=== PATIENT | female | born 1985 | race Caucasian/White ===

== ENCOUNTER 2017-03-06 15:29 | Emergency (ER) | payer MEDICAID ==
[2017-03-06 15:29] VITALS: BMI 39.9
[2017-03-06 15:37] VITALS: RESP 16
--- NOTE | 2017-03-06 16:46 | ED PDOC ---
Syncope/Near Syncope/Dizziness Time Seen by Provider: 03/06/17 15:48 Chief Complaint (Nursing): Dizziness/Lightheaded Chief Complaint (Provider): Syncope History Per: Patient History/Exam Limitations: no limitations Onset/Duration Of Symptoms: Hrs Current Symptoms Are (Timing): Better Number Of Syncopal Episodes: 1 Activity At Onset Of Symptoms: Standing Associated Symptoms Preceding Syncopal Episode: No Predromal Symptoms (Sudden Onset) Seizure Or Post-ictal Symptoms: None Fall Associated With With Symptoms: No Additional Complaint(s): Maxwell Jackson, a 31 year old female, with a past medical history of anxiety and depression presents to the ED post syncopal episode. The patient reports that around noon today she was leaning over and she just fell down. She states that she was alone and so she is unsure of whether or not she lost consciousness. As per patient, she has no history of of fainting or syncopal episodes. Denies urine incontinence, sweats, focal weakness, chest pain and blurry vision. The patient further states that she has been under a lot of stress lately due to relationship issues with her daughter's father. She has been feeling depressed and today even sent her daughter to stay with mother and says she was crying all morning and that she hasn't eaten since yesterday. She also reports that she has not had a regular period since November and in February she had a positive test but is unsure of whether or not she is currently . Denies vaginal bleeding and vaginal discharge. PMD: No Regular Provider Past Medical History Reviewed: Historical Data, Nursing Documentation, Vital Signs Vital Signs: Last Vital Signs Temp 97.9 F 03/06/17 15:34 Pulse 94 H 03/06/17 15:34 Resp 16 03/06/17 15:34 BP 148/93 H 03/06/17 15:34 Pulse Ox 97 03/06/17 15:34 - Medical History PMH: Anxiety, Depression Denies: Diabetes, Hepatitis, HIV, HTN, Seizures, Sexually Transmitted Disease - Surgical History Surgical History: Cholecystectomy - Family History Family History: States: Unknown Family Hx - Social History Current smoker - smoking cessation education provided: No Ex-Smoker (has not smoked in the last 12 months): No Alcohol: Occasional Drugs: Denies (she states that there is wed in the house due to the fact that her boyfriend smokes "weed") - Immunization History Hx Tetanus Toxoid Vaccination: No Hx Influenza Vaccination: No Hx Pneumococcal Vaccination: No - Home Medications Home Medications: Ambulatory Orders Medication Instructions Recorded No Known Home Med 01/05/16 - Allergies Allergies/Adverse Reactions: Allergies Allergy/AdvReac Type Severity Reaction Status Date / Time No Known Allergies Allergy Verified 03/06/17 17:37 Review of Systems ROS Statement: Except As Marked, All Systems Reviewed And Found Negative (and as per HPI) Constitutional: Positive for: Weakness, Malaise. Negative for: Sweats Eyes: Negative for: Vision Change Cardiovascular: Negative for: Chest Pain Neurological: Positive for: Other (1 syncopal episode) Psych: Positive for: Depression Physical Exam - Reviewed Nursing Documentation Reviewed: Yes Vital Signs Reviewed: Yes - Physical Exam Appears: Positive for: Non-toxic, No Acute Distress Head Exam: Positive for: ATRAUMATIC, NORMOCEPHALIC Skin: Positive for: Warm, Dry Eye Exam: Positive for: EOMI, PERRL ENT: Negative for: Pharyngeal Erythema, Tonsillar Exudate Neck: Positive for: Painless ROM, Supple Cardiovascular/Chest: Positive for: Regular Rate, Rhythm, Chest Non Tender. Negative for: Murmur Respiratory: Positive for: Normal Breath Sounds. Negative for: Wheezing Gastrointestinal/Abdominal: Positive for: Soft. Negative for: Tenderness Back: Positive for: Normal Inspection. Negative for: Decreased ROM Extremity: Positive for: Normal ROM. Negative for: Deformity Lymphatic: Negative for: Adenopathy Neurologic/Psych: Positive for: Alert. Negative for: Motor/Sensory Deficits - Laboratory Results Result Diagrams: 03/06/17 17:11 03/06/17 17:11 - ECG O2 Sat by Pulse Oximetry: 97 (RA) Pulse Ox Interpretation: Normal Medical Decision Making Medical Decision Makin Initial Impression 31 y/o female presenting with syncope Initial Plan: * Upreg * Udip * Reevaluation Differentials include but no limited to: , Dehydration, Electrolyte Abnormality, Anemia, Stress, Depression Upreg performed results are negative. Urine dip: Positive trace ketones, blood, protein 100. Otherwise unremarkable Labs unremarkable Accession No. 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 no. Patient Name: MAXWELL JACKSON Pt. Address: [address] [place] [address] Rec #: [id number] [place] [address]: Geoffrey BUENO, Leila Ambrose Pt Order Location: [facility] : 1985 Female Age: 31 Order #: [id number] Reason for exam: headache syncope CT Scan HEAD W/O CONTRAST Exam Date: 03/06/17 This imaging exam was performed at [facility] EXAM: CT Head Without Intravenous Contrast CLINICAL HISTORY: 31 years old, female; Signs and symptoms; Dizziness; Additional info: Headache syncope TECHNIQUE: Axial computed tomography images of the head/brain without intravenous contrast. All CT scans at this facility use one or more dose reduction techniques, viz.: automated exposure control; ma/kV adjustment per patient size (including targeted exams where dose is matched to indication; i.e. head); or iterative reconstruction technique. Coronal and sagittal reformatted images were created and reviewed. COMPARISON: No relevant prior studies available. FINDINGS: Brain: No acute intracranial hemorrhage. No significant white matter disease. No edema. Ventricles: No significant ventriculomegaly. Bones: No acute displaced fracture. Sinuses: Unremarkable as visualized. No acute sinusitis. Mastoid air cells: Unremarkable as visualized. No mastoid effusion. IMPRESSION: No acute intracranial hemorrhage, or suspicious mass effect. Dictated By: Rand Benites MD Dictated Date/Time: 03/06/172027 Signed By: Rand Benites MD Date Signed: 2027 Transcribed By: DALTON Transcribe Date/Time : 03/06/172027 JAMIE/DANIEL 830 On reeval pt stable. Feel betters s/p IVF. DW pt findings and plan of care. Pt to be evaluated by crisis. Questions/concerns addressed, specifically concerns about amenorrhea. Strongly advised Ms Sql Developer follow up for further management. 10p Per CW pt stable for DC. ____ Scribe Attestation Documented by Ana Scherer, acting as a scribe for Leila Hale MD. Provider Scribe Attestation All medical record entries made by the Scribe were at my direction and personally dictated by me. I have reviewed the chart and agree that the record accurately reflects my personal performance of the history, physical exam, medical decision making, and the department course for this patient. I have also personally directed, reviewed, and agree with the discharge instructions and disposition. Disposition - Clinical Impression Clinical Impression: Amenorrhea, Syncope, Depressed Counseled Patient/Family Regarding: Studies Performed, Diagnosis, Need For Followup - Disposition Referrals: [facility] [place] [Outside] (CALL TOMORROW TO SCHEDULE FOLLOW UP APPOINTMENT THIS WEEK FOR FURTHER EVALUATION) [facility] [Outside] Disposition: Routine/Home Disposition Time: 20:30 Condition: IMPROVED Additional Instructions: REST AND EAT AT LEAST THREE MEALS A DAY AND DRINK PLENTY OF HYDRATING FLUIDS PLEASE FOLLOW UP WITH CLINIC THIS WEEK FOR FURTHER MANAGEMENT. Instructions: Syncope (ED), Stress (ED), Amenorrhea (GEN), Depression (ED)
[2017-03-06 17:25] LABS: BASO # 0.1 K/uL (0.0-0.2); BASO % 0.8 % (0.0-2.0); EOS # 0.1 K/uL (0.0-0.7); EOS % 0.9 % (0.0-4.0); HEMATOCRIT 38.6 % (34.0-47.0); LYMPH # 4.3 K/uL (1.0-4.3); LYMPH % 44.8 % (20.0-40.0); MEAN CELL VOLUME 90.5 fl (81.0-99.0); MEAN CORPUSCULAR HEMOGLOBIN 30.3 pg (27.0-31.0); MEAN CORPUSCULAR HGB CONC 33.5 g/dL (33.0-37.0); MEAN PLATELET VOLUME 9.9 fl (7.2-11.7); MONO # 0.7 K/uL (0.0-0.8); MONO % 6.9 % (0.0-10.0); NEUT # 4.5 K/uL (1.8-7.0); NEUT % 46.6 % (50.0-75.0); NRBC % 0.1 % (0.0-0.0); RED CELL DISTRIBUTION WIDTH 13.4 % (11.5-14.5); WHITE BLOOD COUNT 9.7 K/uL (4.8-10.8)
[2017-03-06 17:32] LABS: ALB/GLOB RATIO 1.2 (1.0-2.1); ALKALINE PHOSPHATASE 64 U/L (38-126); ALT/SGPT 47 U/L (9-52); AST/SGOT 39 U/L (14-36); BLOOD UREA NITROGEN 9 mg/dl (7-17); CALCIUM 9.4 mg/dL (8.4-10.2); CARBON DIOXIDE 24 mmol/L (22-30); CHLORIDE 104 mmol/L (98-107); GFR AFRICAN-AMERICAN > 60; GLUCOSE,RANDOM 87 mg/dL (65-105); MAGNESIUM 1.9 MG/DL (1.6-2.3); PHOSPHOROUS 3.2 mg/dl (2.5-4.5); POTASSIUM 3.9 MMOL/L (3.6-5.0); SODIUM 141 mmol/l (132-148); TOTAL PROTEIN 8.2 G/DL (6.3-8.2)
--- NOTE | 2017-03-06 20:29 | CT ---
EXAM: CT Head Without Intravenous Contrast CLINICAL HISTORY: 31 years old, female; Signs and symptoms; Dizziness; Additional info: Headache syncope TECHNIQUE: Axial computed tomography images of the head/brain without intravenous contrast. All CT scans at this facility use one or more dose reduction techniques, viz.: automated exposure control; ma/kV adjustment per patient size (including targeted exams where dose is matched to indication; i.e. head); or iterative reconstruction technique. Coronal and sagittal reformatted images were created and reviewed. COMPARISON: No relevant prior studies available. FINDINGS: Brain: No acute intracranial hemorrhage. No significant white matter disease. No edema. Ventricles: No significant ventriculomegaly. Bones: No acute displaced fracture. Sinuses: Unremarkable as visualized. No acute sinusitis. Mastoid air cells: Unremarkable as visualized. No mastoid effusion. IMPRESSION: No acute intracranial hemorrhage, or suspicious mass effect.
[2017-03-06 22:38] VITALS: BP 151/90; PULSE 77; TEMP 98.7
[2017-03-06 22:48] VITALS: O2SAT 97
--- NOTE | 2017-03-07 13:48 | CARD ---
APPROVED REPORT EKG Measurement Heart [id number] <Conclusion> Normal sinus rhythm with sinus arrhythmia Normal ECG
== END 2017-03-06 23:06 | disposition home or self-care (01) ==
LOC: H.ER 15:29
DX: R55 Syncope and collapse (principal); N91.2 Amenorrhea, unspecified; F32.9 Major depressive disorder, single episode, unspecified; F41.9 Anxiety disorder, unspecified
CPT/HCPCS: 70450; 80053; 81025; 83735; 84100; 84702; 85025; 93005; 99283; J7042

== ENCOUNTER 2017-06-29 15:08 | Emergency (ER) | payer MEDICAID, OTHER ==
[2017-06-29 15:09] VITALS: BMI 39.9
--- NOTE | 2017-06-29 15:54 | ED PDOC ---
HPI: General Adult Time Seen by Provider: 06/29/17 15:52 Chief Complaint (Nursing): Dizziness/Lightheaded Chief Complaint (Provider): headache/breast discharge/abd pain/rectal bleeding History Per: Patient (31 y/o female here for migraine headache x 2 days unrelenting despite motrin 800mg. Patient notes additional abdominal pain ruq/ epigastric ongoing x months. Has noted additional right breast discharge yesterday bloody/whitish discharge. Notes rectal bleeding ongoing x 3 months.) Past Medical History Reviewed: Historical Data, Nursing Documentation, Vital Signs Vital Signs: Last Vital Signs Temp 98 F 06/29/17 15:22 Pulse 92 H 06/29/17 15:22 Resp 16 06/29/17 15:22 BP 150/98 H 06/29/17 15:22 Pulse Ox 93 L 06/29/17 15:55 - Medical History PMH: Anxiety, Depression Denies: Diabetes, Hepatitis, HIV, HTN, Seizures, Sexually Transmitted Disease - Surgical History Surgical History: Cholecystectomy - Family History Family History: States: Unknown Family Hx - Immunization History Hx Tetanus Toxoid Vaccination: No Hx Influenza Vaccination: No Hx Pneumococcal Vaccination: No - Home Medications Home Medications: Ambulatory Orders Medication Instructions Recorded No Known Home Med 01/05/16 - Allergies Allergies/Adverse Reactions: Allergies Allergy/AdvReac Type Severity Reaction Status Date / Time No Known Allergies Allergy Verified 06/29/17 15:27 Review of Systems ROS Statement: Except As Marked, All Systems Reviewed And Found Negative Physical Exam - Reviewed Nursing Documentation Reviewed: Yes Vital Signs Reviewed: Yes - Physical Exam Appears: Positive for: Well, Non-toxic, No Acute Distress Head Exam: Positive for: ATRAUMATIC, NORMAL INSPECTION, NORMOCEPHALIC Skin: Positive for: Normal Color, Warm, DRY Eye Exam: Positive for: EOMI, Normal appearance, PERRL ENT: Positive for: Normal ENT Inspection Neck: Positive for: Normal, Painless ROM Cardiovascular/Chest: Positive for: Regular Rate, Rhythm. Negative for: Chest Non Tender (Breast exam: nontender. No signs of abcess. No discharge noted. No mass noted.) Respiratory: Positive for: CNT, Normal Breath Sounds Gastrointestinal/Abdominal: Positive for: Normal Exam, Bowel Sounds, Soft, Tenderness (epigastric tenderness) Back: Positive for: Normal Inspection Rectal: Positive for: Hemorrhoids (NO BLOOD NOTED. MINIMAL STOOL IN RECTAL VAULT.) Extremity: Positive for: Normal ROM Neurologic/Psych: Positive for: Alert, Oriented - Laboratory Results Result Diagrams: 06/29/17 16:21 06/29/17 16:21 Urine POC: Negative Urine dip results: Negative for: Leukocyte Esterase, Blood, Nitrate, Ketones, Glucose, Bilirubin, Protein - ECG O2 Sat by Pulse Oximetry: 93 - Progress ED Course And Treament: SEEN BY CRISIS CLEARED FOR D/C HOME BY DR. MCKEON DIAGNOSIS DEPRESSION Disposition - Clinical Impression Clinical Impression: Depression, Migraine, Rectal bleed - Patient ED Disposition Is Patient to be Admitted: No - Disposition Referrals: [facility] [place] [Outside] [facility] [place] [Outside] Lolita Meeks MD [Medical Doctor] - Disposition: Routine/Home Disposition Time: 20:02 Condition: FAIR Instructions: Migraine Headache (DC), Depression, Adult (DC), Bloody Stools, Adult (DC) Forms: [facility] ([employer]), [facility] ED School/Work Excuse
[2017-06-29] MEDS ORDERED: Sodium Chloride 0.9% 1,000 ML IV STA (15:55)
[2017-06-29] MEDS ORDERED: Prochlorperazine 10 MG in Sodium Chloride 0.9% 50 ML IVP ONE ×2 (16:15→17:00)
[2017-06-29 16:33] LABS: BASO # 0.1 K/uL (0.0-0.2); BASO % 0.8 % (0.0-2.0); EOS # 0.1 K/uL (0.0-0.7); EOS % 1.2 % (0.0-4.0); HEMOGLOBIN 12.4 g/dL (12.0-16.0); LYMPH # 3.4 K/uL (1.0-4.3); LYMPH % 39.2 % (20.0-40.0); MEAN CELL VOLUME 89.3 fl (81.0-99.0); MEAN CORPUSCULAR HEMOGLOBIN 30.6 pg (27.0-31.0); MEAN CORPUSCULAR HGB CONC 34.2 g/dL (33.0-37.0); MONO # 0.4 K/uL (0.0-0.8); MONO % 5.1 % (0.0-10.0); NEUT # 4.6 K/uL (1.8-7.0); NEUT % 53.7 % (50.0-75.0); NRBC % 0.1 % (0.0-0.0); RBC 4.05 Mil/uL (3.80-5.20); RED CELL DISTRIBUTION WIDTH 12.8 % (11.5-14.5); WHITE BLOOD COUNT 8.6 K/uL (4.8-10.8)
[2017-06-29 16:41] LABS: ALT/SGPT 29 U/L (9-52); AST/SGOT 26 U/L (14-36); BLOOD UREA NITROGEN 8 mg/dl (7-17); CALCIUM 9.2 mg/dL (8.4-10.2); GFR AFRICAN-AMERICAN > 60; GFR NON-AFRICAN AMERICAN > 60; LIPASE 40 U/L (23-300)
[2017-06-29 16:43] LABS: SQUAMOUS EPITHIAL 5 /hpf (0-5); URINE BACTERIA RARE (<OCC); URINE BILIRUBIN NEGATIVE (NEGATIVE); URINE BLOOD SMALL (NEGATIVE); URINE CLARITY CLOUDY (Clear); URINE COLOR AMBER (YELLOW); URINE GLUCOSE (UA) NEG (Normal); URINE LEUKOCYTE ESTERASE NEG Leu/uL (Negative); URINE PROTEIN 100 mg/dL (NEGATIVE); URINE UROBILINOGEN 0.2-1.0 mg/dL (0.2-1.0)
[2017-06-29 17:03] LABS: BARBITURATES, UR NEGATIVE (NEGATIVE); BENZODIAZEPINES, UR NEGATIVE (NEGATIVE); OPIATES, UR NEGATIVE (NEGATIVE); PHENCYCLIDINE, UR NEGATIVE (NEGATIVE)
[2017-06-30 11:08] VITALS: BP 142/79; PULSE 79; RESP 16; TEMP 98.5; O2SAT 97
== END 2017-06-29 20:36 | disposition home or self-care (01) ==
LOC: H.ER 15:08
DX: G43.909 Migraine, unspecified, not intractable, without status migrainosus (principal); F32.9 Major depressive disorder, single episode, unspecified; K62.5 Hemorrhage of anus and rectum; F41.9 Anxiety disorder, unspecified
CPT/HCPCS: 80053; 80320; 80324; 80345; 80346; 80349; 80353; 80358; 80361; 81003; 81025; 83690; 83992; 85025; 96360; 96372; 99285; J0780; J7040